=== PATIENT | female | born 1980 | race Caucasian/White ===

== ENCOUNTER 2018-03-25 12:28 | Emergency (ER) | payer BC ==
[2018-03-25 13:06] LABS: #Basophils 0.1 thou/uL (0.0-0.2); #Eosinphils 0.1 thou/uL (0.0-0.7); #Lymphocytes 1.7 thou/uL (1.20-3.40); #Monocytes 0.7 thou/uL (0.11-0.59); #Neutrophils 5.8 thou/uL (1.40-6.50); %Basophils 0.9 % (0.0-1.0); %Lymphocytes 20.3 % (21.0-51.0); %Monocytes 7.8 % (0.0-10.0); Hemoglobin 12.8 g/dL (12.0-16.0); Mean Corpuscular HGB CONC 34.6 g/dL (32.0-36.0); Mean Corpuscular Volume 89.6 fL (78.0-98.0); Platelet Count 255 thou/uL (130-400); RBC Distribution Width 11.5 % (11.5-14.5); Red Blood Cell (RBC) Count 4.13 mill/uL (4.20-5.40); White Blood Cell (WBC) Count 8.3 thou/uL (4.8-10.8)
[2018-03-25 13:10] LABS: INR-International Normal Ratio 0.9; Prothrombin Time 12.7 SEC (12.0-14.7)
[2018-03-25 13:19] LABS: ALT (SGPT) 69 U/L (8-55); AST (SGOT) 55 U/L (5-34); Albumin 3.6 g/dL (3.5-5.0); Alkaline Phosphatase 72 U/L (40-150); Anion Gap 13 mmol/L (10-20); BUN (Urea Nitrogen) 10 mg/dL (7.0-18.7); Bilirubin, Total 0.3 mg/dL (0.2-1.2); Calc. Creatinine Clearance 0 mL/min (70-130); Calcium 9.6 mg/dL (7.8-10.44); Carbon Dioxide 23 mmol/L (22-29); Chloride 108 mmol/L (98-107); Estimated GFR-MDRD Greater than 90; Globulin 2.8 g/dL (2.4-3.5); Glucose 94 mg/dL (70-105); Protein, Total 6.4 g/dL (6.0-8.3); Sodium 140 mmol/L (136-145)
--- NOTE | 2018-03-25 18:06 | ULT ---
BILATERAL LOWER EXTREMITY VENOUS ULTRASOUND: HISTORY: Right lower extremity swelling and pain for 5 days post . TECHNIQUE: Multiplanar, winston scale, and color Doppler images were obtained in a bilateral lower extremity venous ultrasound. Spectral analysis of the Doppler waveforms was performed. FINDINGS: The bilateral common femoral veins, profunda femoral veins, superficial femoral veins, and popliteal veins are normal in appearance without visible thrombus. These vessels demonstrate normal compressio n, flow, and augmentation. The posterior tibial veins and greater saphenous veins are also patent. IMPRESSION: No evidence of deep vein thrombosis. POS: MARIE
== END 2018-03-25 13:50 | disposition home or self-care (01) ==
LOC: SCSER 12:28
DX: I80.01 Phlebitis and thrombophlebitis of superficial vessels of right lower extremity (principal)
CPT/HCPCS: 36415; 80053; 85025; 85610; 85730; 93970

== ENCOUNTER 2018-03-29 14:33 | Outpatient (CLI) | payer BC ==
--- NOTE | 2018-03-29 17:36 | MRI ---
MRI OF THE LEFT KNEE: Date: 03/29/18 PROVIDED CLINICAL HISTORY: Left knee pain status post injury. FINDINGS: The anterior cruciate ligament, posterior cruciate ligament, medial collateral ligament, and lateral collateral ligamentous complex demonstrate an intact MR appearance. The quadriceps tendon and patellar tendon demonstrate an intact MR appearance. There is high grade pa rtial/near complete tearing of the medial patellar retinaculum at its patellar attachment. There is a thickened and somewhat indistinct appearance to the MPFL. There is articular cartilage deficiency in volving the medial aspect of the lateral facet of the patella, as well as osteochondral injury involv ing the inferior-medial aspect of the patella. There is a large hemarthrosis with Dong's cyst format ion. There is a prominently diminished lateral trochlear inclination angle and a shallow femoral troc hlea sulcus. There is marrow edema at the anterior aspect of the lateral femoral epicondyle. There is an apparent displaced osteochondral focus in the anterior aspect of the knee joint cranial t o Hoffa's fat adjacent to the inferior pole of the patella. This measures approximately 6.0 mm. The medial and lateral menisci demonstrate no definite evidence for tear. There is articular cartilage irregularity involving the central weightbearing portions of the lateral femoral condyle with small foci of at least near full thickness articular cartilage loss. Subcortica l cyst-like changes are seen adjacent to these areas of cartilage irregularity. Regional marrow and muscular signal appear otherwise unremarkable. IMPRESSION: 1. Findings compatible with recent lateral patellar dislocation/relocation with displaced osteochond ral fracture involving the patella inferiorly and articular cartilage defect involving the lateral pa tellar facet. Displaced osteochondral fragment is noted within the anterior aspect of the knee joint. 2. Near full thickness disruption of the medial patellar retinaculum at its patellar attachment. At least partial thickness tearing of the MPFL is suspected. 3. Trochlear dysplasia. 3. Contusion involving anterior aspect of lateral femoral epicondyle. 4. Large hemarthrosis with Dong's cyst. POS: REE
== END 2018-03-29 14:34 | disposition home or self-care (01) ==
LOC: SCSMRI 14:33
PROVIDERS: ATTEND Orthopaedic Surgery
DX: S86.812A Strain of other muscle(s) and tendon(s) at lower leg level, left leg, initial encounter (principal); S80.02XA Contusion of left knee, initial encounter; M25.062 Hemarthrosis, left knee; M71.22 Synovial cyst of popliteal space [Baker], left knee; Q74.1 Congenital malformation of knee

== ENCOUNTER 2018-04-02 08:07 | Day surgery (SDC) | payer BC ==
[2018-03-30 12:09] VITALS: BMI 32.5
[2018-04-02] MEDS ORDERED: PROPOFOL 0 ML ONE (08:29)
[2018-04-02] MEDS ORDERED: CEFAZOLIN/Water 2 GM/20 ML SYRINGE ONE (08:51)
[2018-04-02] MEDS ORDERED: Fentanyl 100 MCG/2 ML VIAL ONE ×4 (08:58→10:59)
[2018-04-02 08:59] LABS: #Eosinphils 0.1 thou/uL (0.0-0.7); #Lymphocytes 1.9 thou/uL (1.20-3.40); #Monocytes 0.5 thou/uL (0.11-0.59); #Neutrophils 4.3 thou/uL (1.40-6.50); %Basophils 0.6 % (0.0-1.0); %Lymphocytes 27.9 % (21.0-51.0); %Monocytes 7.7 % (0.0-10.0); %Neutrophils 62.8 % (42.0-75.0); Hemoglobin 13.9 g/dL (12.0-16.0); Mean Corpuscular HGB CONC 32.5 g/dL (32.0-36.0); Mean Corpuscular Hemoglobin 30.8 pg (27.0-31.0); Mean Corpuscular Volume 94.8 fL (78.0-98.0); Mean Platelet Volume 7.3 fL (7.4-10.4); Platelet Count 336 thou/uL (130-400); White Blood Cell (WBC) Count 6.8 thou/uL (4.8-10.8)
[2018-04-02] MEDS ORDERED: Famotidine/PF 20 mg/2ml Vial ONE (09:45)
[2018-04-02] MEDS ORDERED: Lidocaine 2% w/Epinephrine 1:200K 20 ML VIAL ONE (11:45)
[2018-04-02] MEDS ORDERED: Bupivacaine HCl 0.5%/Epinephrine 1:200,000/PF 30 ml Vial ONE (11:45)
[2018-04-02] MEDS ORDERED: Morphine 4 MG/ML VIAL ONE (11:54)
--- NOTE | 2018-04-02 12:08 | OP ---
DATE OF PROCEDURE: 04/02/2018 PREOPERATIVE DIAGNOSES: Status post left patellar dislocation with loose body. POSTOPERATIVE DIAGNOSES: 1. Status post left patellar dislocation with loose body. 2. Significant grade 3 and 4 chondral changes to the patella as well as the lateral femoral condyle in the area of the trochlea. PROCEDURE: 1. Left knee arthroscopy with removal of loose body greater than 1 centimeter. 2. Debridement and shaving of unstable chondral flaps of the patella and the trochlea as well as rem oval and debridement of multiple blood clots. SURGEON: Damaso Brady M.D. CITY ALDERMAN: None. BLOOD LOSS: Minimal. COMPLICATIONS: None. ANESTHESIA: The patient had a general anesthetic as well as a local knee block. DISPOSITION: She did go to the recovery room in stable condition. INDICATIONS: This 37-year-old female unfortunately just had a baby recently when she slipped and fel l and injured her left leg. At that time she was evaluated. An MRI was obtained and it was felt nery t she had had a left-sided patellar dislocation, now with a large loose body, a huge lipohemarthrosis and significant pain. At this time, she opted to have surgery. OPERATIVE PROCEDURE: After all appropriate consent forms were explained and signed, she was taken to the operating room and at this time was given general anesthetic. Once anesthesia was appropriate, the tourniquet was placed in the left thigh and leg was placed arthroscopic leg fajardo. It was then prepped and draped in standard surgical fashion. Limb was exsanguinated, tourniquet taken up to 300 mmHg. An inferolateral portal was established, and at this time a copious amount of blood was evacua rivka from the knee joint. We then irrigated the knee for a couple minutes, just trying to be able to visualize. We then established our medial portal using a needle localization technique. Diagnostic arthroscopy commenced in the notch. ACL and PCL were probed and found to be intact. Medial compartm ent showed the femur, tibia, and medial meniscus in good condition. The lateral compartment was ente red. Lateral meniscus was in good condition. There was some fissuring and some grade II chondral ch anges on the tibial plateau, but the meniscus itself was intact. No loose bodies yet were noted. As we entered the gutters, both medial and lateral, more so lateral than medial, there was a copious am ount of hemorrhage and clot and inside of this with multiple small cartilaginous loose bodies. This was all removed. We then got to the patellofemoral joint and the patella on the medial aspect where the retinaculum had pulled off the patella and was injured. There was visible hemorrhage and clot as well as some small cartilage pieces and this was removed at this time. We were careful to not disru pt anything to allow this to try and heal on its own since I did not want to perform an arthrotomy se condary to complications postoperatively for this young lady who has a brand new baby and also still has all her hormones throughout her body leaving her with significant laxity in her ligamen ts and capsule. At this time, we then found a larger loose body which was stuck in the fat pad later ally. This was over a centimeter in size. This was removed with a grasper. At this time, we then s pent a lot of time just removing any remaining small pieces of cartilage either from the fat pad, fro m the suprapatellar pouch and went back into both gutters one more time. It was also noted that she had some unstable chondral flaps on the patella. These were gently debrided back to a stable base. She had large areas essentially of the entire central portion of the patella with grade II and III ch anges. There was some small grade 4 area in the central port. Again, any loose cartilage flaps were removed. There was also a large area in the lateral femoral condyle just lateral to the trochlea wh ere there was no significant cartilage and had exposed bone. At this time, we went to the medial por getachew to again visualize through the knee, making sure there were no more loose pieces remaining. Once this was done, the scope was removed, the knee was drained. Portals were closed with nylon sutures. Bulky sterile dressing that was compressive in nature was applied to the left lower extremity. Carson rniquet was let down. The patient then had a knee immobilizer applied. She was then awakened and ta christine to the recovery room in stable condition. All counts were correct at the end of the case and she did receive preoperative IV antibiotics.
[2018-04-02] MEDS ORDERED: Ketorolac Tromethamine 30 MG/ML VIAL ONE (12:21)
[2018-04-02] MEDS ORDERED: Ondansetron HCl/PF 4 MG/2 ML Vial ONE (12:21)
[2018-04-02] MEDS ORDERED: Succinylcholine Chloride 20 MG/ML 10 ml SYRINGE FS ONE (12:21)
[2018-04-02] MEDS ORDERED: Lidocaine 1% PF 5 ML VIAL ONE (12:21)
[2018-04-02] MEDS ORDERED: PROPOFOL 200 MG/20 ML VIAL ONE (12:21)
[2018-04-02] MEDS ORDERED: HYDROcodone/Acetaminophen 5/325 mg Tablet ONE (12:58)
== END 2018-04-02 14:15 | disposition home or self-care (01) ==
LOC: SDC 08:07
PROVIDERS: ATTEND Orthopaedic Surgery
DX: O99.89 Other specified diseases and conditions complicating pregnancy, childbirth and the puerperium (principal); M23.8X2 Other internal derangements of left knee; M23.42 Loose body in knee, left knee; M25.062 Hemarthrosis, left knee; M25.562 Pain in left knee; O99.355 Diseases of the nervous system complicating the puerperium; G43.909 Migraine, unspecified, not intractable, without status migrainosus; Z79.899 Other long term (current) drug therapy; Z88.5 Allergy status to narcotic agent; Z88.8 Allergy status to other drugs, medicaments and biological substances; W19.XXXA Unspecified fall, initial encounter
CPT/HCPCS: 85025; 96374; 96375; G8978-GP-CJ; G8979-GP-CJ; G8980-GP-CJ; J0131; J0670; J1885; J2001; J2270; J2405; J2704; J3010; S0028

== ENCOUNTER 2020-03-24 14:01 | Outpatient (CLI) | payer BC ==
--- NOTE | 2020-03-24 14:40 | ULT ---
Exam: Thyroid ultrasound HISTORY: Thyroid nodule. COMPARISON: None. FINDINGS: Thyroid isthmus: 0.5 cm Right thyroid lobe: 1.6 x 4.8 x 2.1 cm Left thyroid lobe: 1.3 x 4.6 x 1.5 cm Thyroid nodules: There is a single cystic nodule with septations that demonstrate vascularity, involving the thyroid i sthmus measuring 0.8 x 1.9 x 1.2 cm. IMPRESSION: Single cystic nodule in the thyroid isthmus. TI-RADS Score: TR1. Benign. No FNA. Transcribed Date/Time: 03/24/2020 3:11 PM
== END 2020-03-24 14:02 | disposition home or self-care (01) ==
LOC: SCSULT 14:01
PROVIDERS: ATTEND Family Medicine
DX: E04.1 Nontoxic single thyroid nodule (principal)
CPT/HCPCS: 76536